=== PATIENT | male | born 1965 | race Caucasian/White ===

== ENCOUNTER 2016-11-02 00:44 | Inpatient (IN) | payer SELFPAY ==
[~2016-11-02] VITALS: Ht 188 cm; Wt 88.9 kg
[2016-11-02] MEDS ORDERED: HEPARIN 25,000 UNITS/500ML PMX 500 ML ONE (00:50)
[2016-11-02] MEDS ORDERED: SODIUM CHLORIDE 0.9% 1,000 ML IV SCH ×2 (00:52→01:34)
[2016-11-02] MEDS ORDERED: FENTANYL PF 100 MCG/2ML ONE ×2 (00:54→01:01)
[2016-11-02] MEDS ORDERED: SODIUM CHLORIDE 0.9% 1,000ML IVBOLUS ONE (01:00)
[2016-11-02] MEDS ORDERED: FENTANYL PF 100 MCG/2ML IVPush PRN (01:00)
[2016-11-02] MEDS ORDERED: HEPARIN 25,000 UNITS/500ML PMX 500 ML IV PRN (01:00)
[2016-11-02] MEDS ORDERED: CLOPIDOGREL 300 MG TABLET PO ONE (01:00)
[2016-11-02] MEDS ORDERED: TICAGRELOR 90 MG TABLET ONE (01:01)
[2016-11-02] MEDS ORDERED: LIDOCAINE 2%, 20ML ONE (01:01)
[2016-11-02] MEDS ORDERED: HEPARIN 1,000 UNITS/ML, 10ML ONE (01:01)
[2016-11-02] MEDS ORDERED: BIVALIRUDIN 250 MG ONE (01:01)
[2016-11-02] MEDS ORDERED: MIDAZOLAM 1 MG/ML, 5ML ONE (01:01)
[2016-11-02] MEDS ORDERED: NITROGLYCERIN 5 MG/ML, 10ML ONE (01:01)
[2016-11-02] MEDS ORDERED: VERAPAMIL 2.5 MG/ML, 2ML ONE (01:01)
[2016-11-02 01:02] LABS: HEMOGLOBIN 15.1 g/dL (13.7-18.0)
[2016-11-02] MEDS ORDERED: MORPHINE SULFATE 4 MG/ML, 1ML IVPush PRN ×2 (01:30→09:30)
[2016-11-02 01:33] LABS: DIFF TOTAL CELLS COUNTED 100 CELL DIFF
[2016-11-02 01:37] LABS: VERIFY COUNTS? YES
[2016-11-02 01:39] LABS: IS PT STATUS REG ER OR PRE ER? YES
[2016-11-02] MEDS ORDERED: ZOLPIDEM 5MG TABLET PO PRN (02:00)
[2016-11-02] MEDS ORDERED: ONDANSETRON 2MG/ML, 2ML IVPush PRN (02:00)
[2016-11-02] MEDS ORDERED: ACETAMINOPHEN 325 MG TABLET PO PRN ×2 (02:00→09:30)
[2016-11-02] MEDS: SODIUM CHLORIDE 0.9% 1,000 ML IV SCH ×2 (03:00→03:50)
[2016-11-02 03:01] VITALS: BP 115/74
[2016-11-02] MEDS ORDERED: MELO-190 PO (03:25)
[2016-11-02] MEDS ORDERED: OXYC-229 PO (03:25)
[2016-11-02] MEDS ORDERED: METH750T2 PO (03:25)
[2016-11-02] MEDS ORDERED: LOSA100T6 PO (03:25)
[2016-11-02 06:40] VITALS: BP 116/66
[2016-11-02] MEDS ORDERED: SODIUM CHLORIDE 0.9%, 500ML IVBOLUS ONE (08:00)
[2016-11-02 08:30] LABS: IS PT STATUS REG ER OR PRE ER? NO
[2016-11-02] MEDS ORDERED: ONDANSETRON ODT 4 MG PO PRN (09:30)
[2016-11-02] MEDS ORDERED: ONDANSETRON 2MG/ML, 2ML IVP PRN (09:30)
[2016-11-02] MEDS ORDERED: LABETALOL 5MG/ML, 20ML IV PRN (09:30)
[2016-11-02] MEDS ORDERED: LORazepam 2 MG/ML, 1ML IVPush PRN (09:30)
[2016-11-02] MEDS ORDERED: POLYETHYLENE GLYCOL 17 GM PACKET PO PRN (09:30)
[2016-11-02] MEDS ORDERED: LORazepam 1MG TABLET PO PRN (09:30)
[2016-11-02] MEDS ORDERED: BISACODYL 10 MG SUPP PR PRN (09:30)
[2016-11-02] MEDS ORDERED: DOCUSATE 100 MG CAPSULE PO PRN (09:30)
[2016-11-02 10:26] LABS: ASPARTATE AMINO TRANSFERASE 189 U/L (15-37); BLOOD UREA NITROGEN 9 mg/dL (7-18); C-REACTIVE PROTEIN, QUANT 0.08 mg/dL (0.02-0.49)
[2016-11-02] MEDS: FOLIC ACID 1 MG TABLET PO SCH (12:39)
[2016-11-02] MEDS: MULTIVITAMIN 1 TABLET PO SCH (12:39)
[2016-11-02] MEDS: THIAMINE 100MG TABLET PO SCH (12:39)
[2016-11-02] MEDS: NICOTINE 21 MG/24 HR PATCH.TD24 TD SCH (12:39)
[2016-11-02 15:33] VITALS: BP 134/76
[2016-11-02] MEDS ORDERED: OMNIPAQUE 350 MG/ML, 100ML BOTTLE ONE (17:12)
[2016-11-02 20:18] VITALS: BP 130/80
[2016-11-02] MEDS: HYDROcodone/APAP 5/325 TABLET PO PRN (20:21)
[2016-11-03] MEDS: HYDROcodone/APAP 5/325 TABLET PO PRN (01:11)
[2016-11-03 01:45] VITALS: BP 135/78
[2016-11-03 06:14] LABS: HEMOGLOBIN 14.7 g/dL (13.7-18.0)
[2016-11-03 06:24] LABS: BLOOD UREA NITROGEN 18 mg/dL (7-18)
[2016-11-03] MEDS ORDERED: METHOCARBAMOL 750 MG TABLET PO PRN (08:00)
[2016-11-03 08:40] VITALS: BP 130/74
[2016-11-03] MEDS: FOLIC ACID 1 MG TABLET PO SCH (08:41)
[2016-11-03] MEDS: THIAMINE 100MG TABLET PO SCH (08:41)
[2016-11-03] MEDS: MULTIVITAMIN 1 TABLET PO SCH (08:41)
[2016-11-03] MEDS: NICOTINE 21 MG/24 HR PATCH.TD24 TD SCH (08:42)
[2016-11-03] MEDS: OXYcodone/APAP 10/325MG TABLET PO PRN ×2 (09:17→14:24)
[2016-11-03 14:28] VITALS: BP 126/81
[2016-11-03] MEDS ORDERED: MULT1TAB60 PO (15:59)
== END 2016-11-03 22:15 | disposition home or self-care (01) | DRG 392 ==
LOC: EDBD → EDSEX → ED 00:44 → MERGE 00:44 → 5SO 02:56
PROVIDERS: ADMIT Internal Medicine; ATTEND Internal Medicine
PROC: 4A023N7 Measurement of Cardiac Sampling and Pressure, Left Heart, Percutaneous Approach (ICD-10-PCS; principal; 2016-11-02)
PROC: B2111ZZ Fluoroscopy of Multiple Coronary Arteries using Low Osmolar Contrast (ICD-10-PCS; 2016-11-02)
PROC: B2151ZZ Fluoroscopy of Left Heart using Low Osmolar Contrast (ICD-10-PCS; 2016-11-02)
PROC: 0T9B70Z Drainage of Bladder with Drainage Device, Via Natural or Artificial Opening (ICD-10-PCS; 2016-11-02)
DX: K29.70 Gastritis, unspecified, without bleeding (principal); I10 Essential (primary) hypertension; G89.29 Other chronic pain; K81.1 Chronic cholecystitis; K70.9 Alcoholic liver disease, unspecified; Y90.7 Blood alcohol level of 200-239 mg/100 ml; F17.210 Nicotine dependence, cigarettes, uncomplicated; D75.89 Other specified diseases of blood and blood-forming organs; F10.229 Alcohol dependence with intoxication, unspecified; Z98.52 Vasectomy status; Z83.3 Family history of diabetes mellitus
CPT/HCPCS: 36415; 71010; 71275; 76700; 80047; 80048; 80053; 80076; 80307; 81003; 82040; 83735; 84100; 84439; 84443; 84484; 85014; 85018; 85025; 85610; 85651; 85730; 86140; 93005; 93306; 93458; 96365; 96366; C1760; C1894; J0583; J1644; J2250; J3010; J3490; Q9967; J7030; J7040